=== PATIENT | female | born 1960 | race Caucasian/White ===

== ENCOUNTER 2016-07-30 20:11 | Observation (INO) | payer OTHER ==
[~2016-07-30] VITALS: Ht 167.6 cm; Wt 71.2 kg
--- NOTE | ~2016-07-30 | O ---
[facility] [place] [address] OPERATIVE REPORT Name: SUSANA WHITE Room #: 417-I [facility] Zulema Haskins#: [id number] Admission: 07/30/16 Attend Phys: Jayden Hdz MD Discharge: 07/31/16 Date of : 58 Report #: [id number] THIS REPORT FOR: //name// CC: ILYA physician/PCP Jayden Hdz DATE OF SERVICE: 07/31/2016 PREOPERATIVE DIAGNOSIS: Open right distal radius fracture. POSTOPERATIVE DIAGNOSIS: Open right distal radius fracture. PROCEDURES: 1. Irrigation and debridement of open right distal radius fracture. 2. Percutaneous fixation after closed reduction of right distal radius fracture. SURGEON: Jayden Hdz M.D. ANESTHESIA: General. ESTIMATED BLOOD LOSS: 1 mL. DRAINS: No drains. TOURNIQUET TIME: 30 minutes. DESCRIPTION OF PROCEDURE: The patient brought to the operating room where she was placed under general anesthesia. Once under adequate general anesthesia, her right upper extremity was prepped and draped in a sterile manner. The patient had an open wound just over the ulnar aspect of the distal radius volarly. This was then excised through an elliptical incision extending 2 cm. Blunt dissection was carried down to the bone from this open wound, and exposure of the bone was achieved. The wound was then irrigated copiously with normal saline solution. The wound was then closed with 4-0 nylon suture in a simple stitch manner. We then proceeded with a closed reduction maneuver during which a dorsal skin tear did occur; however, the fracture was well reduced. Once reduced, two 0.062 K-wires were placed across the fracture site. Excellent fixation and alignment was achieved in this manner. This was verified under fluoroscopy. The pins were cut short, and pin balls were placed at the end of the pins. Final x-ray images noted satisfactory alignment. The wound was dressed with Xeroform, 4 x 4s, and a sterile soft compressive dressing with a sugar tong splint was placed. Tourniquet was let down at approximately 30 minutes. Fingers were pink and warm with good capillary refill. There were no [facility] [address] [place] [address] OPERATIVE REPORT Name: SUSANA WHITE Room #: 417-I [facility] Zulema Haskins#: [id number] Admission: 07/30/16 Attend Phys: Jayden Hdz MD Discharge: 07/31/16 Date of : 58 Report #: [id number] complications from the procedure. The patient tolerated the procedure well and went to the recovery room without incident. <ELECTRONICALLY SIGNED> By: Jayden Hdz MD 08/02/16 0935 0121 0405 Jayden Hdz MD /nt
--- NOTE | ~2016-07-30 | EKG ---
[place] [address] 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
--- NOTE | ~2016-07-30 | H ---
[facility] [place] [address] HISTORY AND PHYSICAL Name: CINDYSUSANA Room #: 417-I [facility] Zulema Haskins#: [id number] Admission: 07/30/16 Attend Phys: Jayden Hdz MD Discharge: 07/31/16 Date of : 58 Report #: [id number] THIS REPORT FOR: //name// CC: ILYA physician/PCP Jayden Hdz CHIEF COMPLAINT: Right wrist open distal radius fracture. HISTORY OF PRESENT ILLNESS: This is a 56-year-old patient coming through the Emergency Room for management of a distal radius fracture, which apparently was open. It was apparently paining when she fell off of a ladder injuring her right upper extremity. She was brought to the Emergency Room and evaluated and noted to have a distal radius fracture with a open volar wound. Orthopedics was consulted for management. PAST MEDICAL HISTORY: Is reviewed. MEDICATIONS: The patient takes topiramate, fish oil, vitamins and Caltrate. ALLERGIES: SULFA ANTIBIOTICS. REVIEW OF SYSTEMS: Is as above. PHYSICAL EXAMINATION: VITAL SIGNS: Notes a blood pressure of 113/71, temperature is 36.5, respiratory rate is 20. GENERAL: Awake, alert, in no apparent distress. EXTREMITIES: The patient's right upper extremity notes that she is in a splint. She is neurovascularly intact distally. She has good capillary refill. She has an open volar grade 1 type open wound. DATA: EKG is normal. X-rays are reviewed noting the 100% displaced distal radius fracture dorsally angulated. IMPRESSION: Open right distal radius fracture. PLAN: Would be to proceed with irrigation and debridement with open reduction and internal fixation right distal radius fracture. The risks, benefits, alternatives and complications were discussed at length with the patient. We will proceed in the near future. <ELECTRONICALLY SIGNED> By: Jayden Hdz MD 08/02/16 0935 2304 0354 Jayden Hdz MD /nt
[2016-07-30 20:19] VITALS: BP 113/71
[2016-07-30] MEDS ORDERED: TOPAMAX 25 MG T25 M1 PO (20:23)
[2016-07-30] MEDS ORDERED: APPETITE SUPPRESSANT (20:23)
[2016-07-30] MEDS ORDERED: CALCIUM 600 +1 EAC1 PO (20:24)
[2016-07-30] MEDS ORDERED: VITAMIN D3400 UNIT PO (20:24)
[2016-07-30] MEDS ORDERED: FISH OIL 1,001000 M2 PO (20:24)
[2016-07-30] MEDS ORDERED: POTASSIUM99 M1 (20:25)
[2016-07-30 23:28] VITALS: BP 99/71
[2016-07-30 23:29] LABS: HEMATOCRIT 40.2 % (37.0-47.0); HEMOGLOBIN 13.7 gm/dL (12.0-15.0); MCH 33.1 pg (26.0-34.0); MCHC 34.2 g/dL (28.0-37.0); MCV 96.8 fL (80.0-100.0); RBC 4.16 mil/uL (4.20-5.00); RDW 13.1 % (10.5-14.5); WBC 11.1 thou/uL (4.0-11.0)
[2016-07-30 23:45] LABS: CALCIUM 8.4 mg/dL (8.5-10.1); POTASSIUM 3.4 mmol/L (3.5-5.1)
[2016-07-31 02:10] VITALS: BP 111/66
[2016-07-31 04:00] VITALS: BP 90/49
[2016-07-31 08:11] VITALS: BP 94/53
[2016-07-31] MEDS ORDERED: KEFLEX500 MG PO (09:10)
[2016-07-31] MEDS ORDERED: PERCOCET 7.5-31 EACH PO (09:11)
[2016-07-31 10:10] VITALS: BP 94/53
[2016-07-31 10:46] VITALS: BP 94/53
== END 2016-07-31 10:40 | disposition home or self-care (01) ==
LOC: ER 20:11 → EROBS 22:36 → TBACV 07-31 → 4E 07-31 02:10
PROVIDERS: Emergency Medicine
DX: S52.501B Unspecified fracture of the lower end of right radius, initial encounter for open fracture type I or II (principal); W11.XXXA Fall on and from ladder, initial encounter; Y93.89 Activity, other specified; Y92.89 Other specified places as the place of occurrence of the external cause; Y99.8 Other external cause status
CPT/HCPCS: 50101; 50386; 51275; 53078; 56526; 57091; 62110; 62900; 70005

== ENCOUNTER → 2017-08-04 | Outpatient (CLI) | payer OTHER ==
[~2017-08-04] MED LIST: APPETITE SUPPRESSANT; CALCIUM 600 +1 EAC1 PO; FISH OIL 1,001000 M2 PO; KEFLEX500 MG PO; PERCOCET 7.5-31 EACH PO; POTASSIUM99 M1; TOPAMAX 25 MG T25 M1 PO; VITAMIN D3400 UNIT PO
== END ==
LOC: RAD 13:03
DX: Z12.31 Encounter for screening mammogram for malignant neoplasm of breast (principal); Z85.3 Personal history of malignant neoplasm of breast

== ENCOUNTER → 2018-12-05 | Outpatient (CLI) | payer OTHER | LOC: RAD 10:22 | DX: Z12.31 Encounter for screening mammogram for malignant neoplasm of breast (principal) ==

== ENCOUNTER → 2019-06-06 | Outpatient (CLI) | payer BC, OTHER | LOC: RAD 11:17 | DX: M48.02 Spinal stenosis, cervical region (principal); M41.84 Other forms of scoliosis, thoracic region; M43.12 Spondylolisthesis, cervical region; M50.122 Cervical disc disorder at C5-C6 level with radiculopathy; M12.88 Other specific arthropathies, not elsewhere classified, other specified site ==

== ENCOUNTER 2019-08-16 13:35 | Inpatient (IN) | payer BC, OTHER ==
[~2019-08-16] VITALS: Ht 167.6 cm; Wt 73.4 kg
--- NOTE | ~2019-08-16 | HC ---
[facility] [place] [address] CONSULTATION Name: SUSANA WHITE Room #: 213-P [facility] IN M.R.#: [id number] Admission: 08/16/19 Attend Phys: Sinan Felix MD Discharge: 08/17/19 Date of : 58 Report #: [id number] THIS REPORT FOR: cc: Shu Callejas MD, Nora P. MD McKittrick, Richard James MD ~ CC: [facility] Callejas MD REASON FOR CONSULTATION: History of breast cancer, now with left vocal cord paresis and abnormalities on scans. 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 At that time, she describes a right-sided breast ____ less than 2 cm grade 3, ER positive. She was age 46. She reports genetic testing for BRCA1 and 2. This was up in [place] at [place]. She received dose-dense Adriamycin, Cytoxan x 4 cycles and Taxol q. 2 weeks for 4 cycles. She then completed 5 years of Femara in about 2012. Note that she also had post-lumpectomy radiation therapy. Recently, the patient has since about May 2019 some voice changes, also about the same time some base of the neck pain, also some left hip/left leg pain. Outpatient had shown a CAT scan of the neck that showed a lesion in the bones at the base of the neck. She has also had a CT head here, which showed a parietal lesion. She also had a plain film showing some worrisome changes for metastatic disease in her left femur. She also had a pleural effusion, which has had a thoracentesis, I believe, 2 liters. PAST MEDICAL HISTORY: Notable for the breast cancer as mentioned above. Also, history of bilateral ACL troubles, also right shoulder surgery. Also, right wrist surgery. FAMILY HISTORY: Father had heart disease, mother at age 94 with macular degeneration. One brother with heart disease. Two sisters, one has Crohn's, one had glaucoma. Two sons, one is age 28, one age 29, I think both attendant [facility], one is an environmental programs manager in [place], the other, I believe, is in [place]. 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 Nonsmoker, rare alcohol, maybe once per week. No street drugs. The patient's last colonoscopy was about 5 years ago[address] [address] CONSULTATION Name: SUSANA WHITE Room #: 213-P [facility] IN M.R.#: [id number] Admission: 08/16/19 Attend Phys: Sinan Felix MD Discharge: 08/17/19 Date of : 58 Report #: [id number] MEDICATIONS: At this time in the hospital currently include morphine sulfate p.r.n., hydrocodone 1 tab q.4 hours p.r.n., Tylenol p.r.n., zolpidem 5 mg at bedtime p.r.n., MiraLax 17 grams p.r.n., Zofran p.r.n. PHYSICAL EXAMINATION: GENERAL: The patient appears her stated age. VITAL SIGNS: Height is 5 feet 6 inches, which is 167.6 cm. Weight is 161.9 pounds or 73.4 kilograms. Blood pressure is 128/73 with respirations of 18, pulse 106, afebrile at 97.8, O2 sat on room air is 93%. MOOD: The patient is alert, pleasant, conversant. NEUROLOGIC: Speech pattern and thought pattern appear to be normal. Moving all extremities. Voice is slightly raspy consistent with a left vocal cord paresis noted by Dr. Jameson Martinez. LYMPHATICS: No enlarged lymph nodes in the supraclavicular, cervical, axillary or inguinal region. ABDOMEN: Slightly obese. No organomegaly. Nontender. EXTREMITIES: Without clubbing, cyanosis or edema. On gross exam, no weakness or dysesthesias noted. LABORATORY DATA: Done here in the hospital currently includes sodium slightly low at 134, BUN 22, creatinine 0.9, AST 31, ALT 26, alkaline phosphatase 107. Coags were normal. White blood count 7, hemoglobin 13.7, MCV 96.0, platelets 289. Differential mostly normal, though a slight increase in neutrophils. RADIOLOGIC STUDIES: Here in the hospital currently include, 2-view hip showing a solitary left femoral, proximal diaphyseal small lytic bone lesion, nonspecific, but worrisome, otherwise negative study. Chest x-ray shows moderate to large left pleural effusion with underlying left lung pneumonia/atelectasis or mass not excluded. Recommended thoracentesis and followup. CT head shows no evidence of acute intracranial hemorrhage. Mixed lucent and sclerotic lesion within the high paramedial left parietal bone at the vertex measuring 3.2 x 3.7 cm. Note that we also have copies of CT chest from diagnostic imaging centers dated 08/15/2019. This describes the impression: Large left pleural effusion with extensive atelectasis. Leftward shift in mediastinum. 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 Numerous scattered bilateral pulmonary nodules suspicious for metastatic disease. Multiple lytic lesions scattered throughout the visualized osseous structures highly suspicious for metastatic disease. Dominant lesion within T12 vertebral body resulting disruption of the posterior vertebral body cortex with suggestion of minimal epidural extension of the tumor. Small ill-defined hepatic lesions, which is indeterminate. Prominent left supraclavicular lymph node, which is indeterminate. Small indeterminate density left renal lesion. Small pericardial effusion. CT neck from same date from diagnostic imaging shows a 2.2 x 3.2 cm expansile destructive lesion in the left skull base involving the left occipital condyle extending to the left jugular foramen. We also have [address] [address] CONSULTATION Name: SUSANA WHITE Room #: 213-P [facility] IN M.R.#: [id number] Admission: 08/16/19 Attend Phys: Sinan Felix MD Discharge: 08/17/19 Date of : 58 Report #: [id number] Jameson Martinez mentioning partially paralyzed left vocal cord with no palpable abnormality of the neck. ASSESSMENT AND PLAN: 1. History of hormone positive breast cancer from 2006, now with abnormal CAT scan with pleural effusion. Await cytology. The patient will likely go home. We will order PET scan and MRI head. We may need to consider additional test. We will await cytology and we may need to consider biopsy of lesion for additional testing. The patient is aware that this may represent recurrent breast cancer or another malignancy or infection. 2. Trouble swallowing liquids. We will have speech therapy see the patient. 3. Bony disease. We will likely consider bisphosphonate or RANK-ligand therapy. 4. Pain control. Hydrocodone and Tylenol and nonsteroidals as needed. The patient will be called regarding PET scan and MRI and will be arranged for followup. By: 0804 0836 Gunner Elliott MD /nt
[2019-08-16 13:40] VITALS: BP 122/79
[2019-08-16 14:16] LABS: ABSOLUTE NEUTROPHILS 5.5 thou/uL (1.4-8.2); BASOPHILS 0.4 % (0.0-2.0); EOSINOPHILS 1.5 % (0.0-3.0); HEMATOCRIT 40.8 % (37.0-47.0); HEMOGLOBIN 13.7 gm/dL (12.0-15.0); LYMPHOCYTES 11.3 % (24.0-44.0); MCH 32.3 pg (26.0-34.0); MCHC 33.6 g/dL (28.0-37.0); MONOCYTES 8.2 % (1.0-8.0); PLATELET COUNT 289 thou/uL (150-400); POLYS 78.6 % (36.0-66.0); RBC 4.25 mil/uL (4.20-5.00); RDW 12.8 % (10.5-14.5)
[2019-08-16] MEDS ORDERED: CHILDREN'S ZYRT10 M1 PO (14:22)
[2019-08-16] MEDS ORDERED: COQ-10100 MG PO (14:22)
[2019-08-16] MEDS ORDERED: CALCIUM 600 +1 EAC1 PO (14:23)
[2019-08-16] MEDS ORDERED: VITAMIN D3250 MC2 PO (14:23)
[2019-08-16] MEDS ORDERED: IBUPROFEN200 M1 PO (14:24)
[2019-08-16] MEDS ORDERED: [UNRECOGNIZED DRUG - OTHER] PO (14:24)
[2019-08-16] MEDS ORDERED: MULTIPLE VITAM1 EAC2 PO (14:25)
[2019-08-16 14:29] LABS: ANION GAP 8 mmol/L (7-16); BUN 22 mg/dL (7-18); CALCIUM 9.6 mg/dL (8.5-10.1); CHLORIDE 99 mmol/L (98-107); CO2 27 mmol/L (21-32); CREATININE 0.9 mg/dL (0.6-1.0); GLUCOSE 99 mg/dL (74-106); POTASSIUM 3.8 mmol/L (3.5-5.1); SODIUM 134 mmol/L (136-145)
[2019-08-16 14:38] LABS: ALBUMIN 3.5 g/dL (3.4-5.0); SGOT 31 U/L (15-37); SGPT 26 U/L (30-65); TOTAL BILIRUBIN 0.3 mg/dL (<0.1-1.0); TOTAL PROTEIN 7.7 g/dL (6.4-8.2); TROPONIN-I <0.06 ng/mL (<0.06)
[2019-08-16 14:48] LABS: APTT 27.3 Seconds (24.5-32.8)
[2019-08-16 17:04] LABS: CLARITY CLOUDY; COLOR DARK YELLOW; SOURCE LEFT CHEST; TOTAL VOLUME 35 mL
[2019-08-16 17:10] VITALS: BP 119/54
[2019-08-16 17:10] LABS: SOURCE LEFT CHEST
[2019-08-16 17:27] LABS: BF NUCLEATED CELLS 1831; BF RBC 6002
[2019-08-16 17:38] VITALS: BP 121/69
[2019-08-16 18:05] VITALS: BP 125/75
[2019-08-16 18:05] LABS: BF COMMENTS 0; BF MACROPHAGE 3; BF NEUTROPHILS 0
--- NOTE | 2019-08-16 18:05 | NUR ---
PT RECEIVED FROM THE ER TO ROOM 213 ALERT AND IN ACUTE DISTRESS. SETTLED INTO BED AND ORIENTED TO UNIT. DINNER TRAY SERVED AND PT EATING.
[2019-08-16 19:45] VITALS: BP 111/71
[2019-08-16 23:56] VITALS: BP 114/56
[2019-08-17 03:39] VITALS: BP 128/73
--- NOTE | 2019-08-17 03:54 | NUR ---
1900, PT NEW ADMIT. ALERT AND ORIENTED. VSS WITH LITTLE ELEVATED HR 99-110. DENIES CHEST PAIN OR CHEST PALPITATIONS. LUNGS CLEAR, NO EDEMA, NO NAUSEA OR VOMITING REPORTED. PT REPORTS HEADACHE, TYLENOL PRN. NO FURTHER C/O AT THIS TIME. WILL CONTINUE TO FOLLOW POC.
[2019-08-17 08:15] VITALS: BP 115/72
--- NOTE | 2019-08-17 08:29 | EKG ---
[facility] [place] [address] ELECTROCARDIOGRAM REPORT Name: SUSANA WHITE Room #: 213-P ADM IN M.R.#: [id number] Admission: 08/16/19 Attend Phys: Sinan Felix MD Discharge: Date of : 58 Report #: [id number] THIS REPORT FOR: cc: Shu Callejas MD, Nora P. 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 : 1960 Requested By: Yash Smith Order Number: [id number] MD: Jf Beebe Measurements Intervals [place] Rate: 104 P: 44 [place]: 135 QRS: 35 QRSD: 90 T: -9 QT: 326 QTc: 429 Interpretive Statements Sinus tachycardia Borderline T abnormalities, inferior leads Compared to ECG 07/30/2016 22:23:21 T-wave abnormality now present Sinus bradycardia no longer present Electronically Signed On 08-17-2019 8:27:35 CDT by Jf Beebe [email or web address] <ELECTRONICALLY SIGNED> By: Jf Beebe MD, [facility] 08/17/19 0827 1404 1404 Jf Beebe MD, [facility] /EPI
[2019-08-17 13:41] VITALS: BP 115/72
--- NOTE | 2019-08-17 14:35 | NUR ---
ASSUMMED PT CARE AT APPROXIMATELY 0700. PT A&O X4. ASSESSMENT CHARTED. FALL PRECAUTIONS IN PLACE. PT DENIES HAVING CHEST PAIN. PT DENIES HAVING SOB. PT STATED THE BACK OF HER HEAD HURT. PT RECEIVED ANALGESICS. PT STATED SHE HAD PAIN AFTER ANALGESICS. PT DENIED WANTING ADDITIONAL ANAGLESICS. PT DISCHARGING HOME C SELF CARE. PT AMBULATES STEADY/INDEPENDENTLY WITH WALKER. PT RECEIVED DISCHARGE EDUCATION. PT STATED UNDERSTANDING AND DENIED HAVING FURTHER QUESTIONS. IV DC. TELE DC. PT RECEIVING HOSPITAL TRANSPORT OFF UNIT. VITAL SIGNS STABLE. PT COMFORTABLE. PT DENIES HAVING FURTHER CONCERNS.
[2019-08-17 18:08] LABS: BODY FLUID AMYLASE 55 U/L (()); BODY FLUID GLUCOSE 89 mg/dL (()); BODY FLUID LDH 230 IU/L (()); BODY FLUID PROTEIN 4.5 g/dL (())
== END 2019-08-17 15:00 | disposition home or self-care (01) | DRG 187 ==
LOC: ER 13:35 → EROBS 16:17 → 2N 16:17 → ENTRNSPT 08-17 14:39 → 2N 08-17 15:00
PROVIDERS: Emergency Medicine; Family Medicine; ADMIT Hospitalist
PROC: 0W9B3ZZ Drainage of Left Pleural Cavity, Percutaneous Approach (ICD-10-PCS; principal; 2019-08-16)
DX: J90 Pleural effusion, not elsewhere classified (principal); E87.1 Hypo-osmolality and hyponatremia; M89.9 Disorder of bone, unspecified; Z85.3 Personal history of malignant neoplasm of breast; Z87.81 Personal history of (healed) traumatic fracture; Z88.2 Allergy status to sulfonamides; Z82.49 Family history of ischemic heart disease and other diseases of the circulatory system
CPT/HCPCS: 10081; 10797

== ENCOUNTER 2019-08-30 16:32 | Inpatient (IN) | payer BC, OTHER ==
[~2019-08-30] VITALS: Ht 167.6 cm; Wt 74.4 kg
--- NOTE | ~2019-08-30 | O ---
[facility] [place] [address] OPERATIVE REPORT Name: SUSANA WHITE Room #: 437-P [facility] M.R.#: [id number] Admission: 08/30/19 Attend Phys: Karri Uriarte MD Discharge: Date of : 58 Report #: [id number] THIS REPORT FOR: cc: Shu Callejas MD, Nora P. MD Clymer, David J. MD ~ CC: Karri Callejas DATE OF SERVICE: 08/31/2019 PREOPERATIVE DIAGNOSIS: Pathologic fracture, left femoral neck. POSTOPERATIVE DIAGNOSIS: Pathologic fracture, left femoral neck. PROCEDURE: Left proximal femoral hemiarthroplasty. SURGEON: Marques Byrnes MD INDICATIONS: This 59-year-old female has widely metastatic breast cancer. She developed a pathologic fracture of the left femoral neck. We have discussed treatment options and elected to proceed with cemented hemiarthroplasty. DESCRIPTION OF PROCEDURE: The patient was taken to the operating room where she was placed under general anesthesia. Prophylactic intravenous antibiotics were administered. She was turned to the right lateral decubitus position. The left hip and thigh were meticulously prepped and draped. A slightly curving skin incision was made centered over the greater trochanter. This was carried through subcutaneous tissues and fascia exposing the posterior aspect of the hip joint. The short external rotators were taken down and the capsule was preserved. The fracture was found to be displaced and unstable. The femoral head was removed and measured at 46 mm in diameter. The femoral neck was trimmed down to an appropriate level. The canal was opened with reamers and hand broaches. The Mccollum and Nephew size 12 cemented stem seemed to fit nicely. A trial reduction was performed and the hip seemed stable and well aligned when using a +4 mm neck length and a 46 mm unipolar head size. The trial components were removed. The intramedullary canal was thoroughly irrigated and dried. A cement restrictor was placed distally in the canal. The acetabulum was thoroughly inspected and any loose debris was removed. Methyl methacrylate cement was then mixed and injected into canal. The Mccollum and Nephew size 12 cemented stem was then inserted, placing this in about 15 degrees of anteversion. Excess cement was removed around its margin. The unipolar 46 mm size head with a +4 mm neck length was then inserted. This was gently impacted on the Abreu taper and seated nicely. The hip was reduced and held securely as the cement hardened. Alignment, range of motion and stability were [facility] [address] [place] [address] OPERATIVE REPORT Name: WHITESUSANA Room #: 437-P [facility] IN M.R.#: [id number] Admission: 08/30/19 Attend Phys: Karri Uriarte MD Discharge: Date of : 58 Report #: [id number] assessed and felt to be satisfactory. The capsule was repaired and the short external rotators were repaired back to bone using #1 Tevdek sutures, passed through the greater trochanter. A single Hemovac was left in the wound exiting through a separate stab incision. The fascia was then closed with multiple #1 Vicryl sutures. The subcutaneous tissues were closed with 0 Monocryl. The skin was closed with skin krista. A sterile dressing was applied. The patient was awakened and returned to recovery room in good condition. By: 1510 1535 Marques Byrnes MD /nt
[~2019-08-30 16:32] MED LIST changes: +CHILDREN'S ZYRT10 M1 PO; +COQ-10100 MG PO; +IBUPROFEN200 M1 PO; +MULTIPLE VITAM1 EAC2 PO; +VITAMIN D3250 MC2 PO; +[UNRECOGNIZED DRUG - OTHER] PO
[2019-08-30 16:48] VITALS: BP 142/72
[2019-08-30] MEDS ORDERED: CYCLOBENZAPRINE10 MG PO (16:54)
[2019-08-30] MEDS ORDERED: DEXAMETHASONE1 MG PO (16:55)
[2019-08-30] MEDS ORDERED: NAMENDA 10 MG T10 MG PO (16:56)
[2019-08-30 17:42] LABS: ABSOLUTE NEUTROPHILS 7.8 thou/uL (1.4-8.2); BASOPHILS 0.3 % (0.0-2.0); EOSINOPHILS 0.7 % (0.0-3.0); HEMATOCRIT 38.3 % (37.0-47.0); HEMOGLOBIN 13.2 gm/dL (12.0-15.0); MCH 32.9 pg (26.0-34.0); MCHC 34.6 g/dL (28.0-37.0); MCV 95.2 fL (80.0-100.0); MONOCYTES 6.3 % (1.0-8.0); PLATELET COUNT 323 thou/uL (150-400); POLYS 85.7 % (36.0-66.0); RBC 4.02 mil/uL (4.20-5.00); RDW 12.9 % (10.5-14.5); WBC 9.1 thou/uL (4.0-11.0)
[2019-08-30 17:49] LABS: CALCIUM 9.3 mg/dL (8.5-10.1); CREATININE 0.8 mg/dL (0.6-1.0); POTASSIUM 4.5 mmol/L (3.5-5.1)
[2019-08-30 18:39] VITALS: BP 142/72
[2019-08-30 18:51] VITALS: BP 145/82
[2019-08-30 19:52] VITALS: BP 144/83
[2019-08-31 03:50] VITALS: BP 131/82
--- NOTE | 2019-08-31 04:02 | NUR ---
PT WAS ADMITTED TO THE UNIT FROM THE ER IN A STABLE CONDITION.ADMISSION HX,EDUCATION AND ASSESSMENT COMPLETED BY ADMISSION NURSE.CONSAENTS SIGNED ,IN THE CHART.HOOKS CATH INSERTED PER ORDER.PT C/O PAIN,MANAGED WITH ICE AND MED,EFFECTIVE.PT NPO FOR SURGERY LATER IN THE DAY.FALL PRECAUTIONS IN PLACE,CALL LIGHT WITHIN REACH.
[2019-08-31 07:43] VITALS: BP 128/87
[2019-08-31 08:09] LABS: CALCIUM 8.8 mg/dL (8.5-10.1); CREATININE 0.8 mg/dL (0.6-1.0)
[2019-08-31 08:13] LABS: POTASSIUM 3.4 mmol/L (3.5-5.1)
--- NOTE | 2019-08-31 11:43 | HC ---
[facility] [place] [address] CONSULTATION Name: SUSANA WHITE Room #: 437-P [facility] IN M.R.#: [id number] Admission: 08/30/19 Attend Phys: Karri Uriarte MD Discharge: Date of : 58 Report #: [id number] THIS REPORT FOR: cc: Shu Callejas MD, Nora P. MD Clymer, David J. MD ~ CC: Karri Callejas DATE OF SERVICE: 08/30/2019 CHIEF COMPLAINT: Metastatic breast cancer with pathologic fracture, left femoral neck. HISTORY OF PRESENT ILLNESS: This 59-year-old female has widely metastatic breast cancer and has progressive symptoms in multiple areas. Recently, she developed hoarseness consistent with a partial vocal cord paralysis. In the workup for that problem, she was found to have a large pulmonary effusion, which required aspiration and drainage. She has also noted progressive left hip pain, which has become much more severe recently. Recent outpatient PET scan confirmed evidence of a pathologic fracture involving the left femoral neck. This is confirmed with plain x-rays in my office today. We elected to go ahead with hospital admission for more complete evaluation and probable surgical management with cemented hemiarthroplasty. Her previous medical history is notable for her metastatic breast disease and for the problems noted above. I note that she was recently admitted to [facility] by the hospitalist group on 08/16/2019. Her current medications include hydrocodone, Tylenol, MiraLax, and Zofran p.r.n. PHYSICAL EXAMINATION: GENERAL: She is alert and oriented, but seems somewhat frail. She is somewhat hoarse consistent with vocal cord paralysis. She is unable to stand or bear weight due to left hip pain. LUNGS: Today seem clear to auscultation. CARDIOVASCULAR: Reveals a regular rate and rhythm without murmurs. ABDOMEN: Soft and nontender. EXTREMITIES: The upper extremities are normal and demonstrate good range of motion without much pain. The pelvis appears to be stable and well aligned. The right hip demonstrates good range of motion without significant discomfort. The left hip is also in good alignment, but demonstrates significant discomfort with any attempted flexion or rotation. Findings are certainly consistent with a metastatic lesion and pathologic fracture at the left femoral neck. The lower leg, foot, and ankle appear to be normal. IMPRESSION: Metastatic breast cancer with pathologic fracture, left hip. I [address] [address] CONSULTATION Name: SUSANA WHITE Room #: 437-P [facility] IN M.R.#: [id number] Admission: 08/30/19 Attend Phys: Karri Uriarte MD Discharge: Date of : 58 Report #: [id number] have discussed this at some length with the patient and patient and her both agree they would like to press ahead with surgical repair. We have discussed percutaneous screw fixation or TFN nail, but I doubt this would result in clear pain relief or reliable fracture healing. She is anxious to be able to resume weightbearing and activity, so that she can press ahead with her plans for outpatient radiation therapy. Consequently, I think cemented hemiarthroplasty may be the best and most practical option for this patient. We will plan to proceed with hospital admission for general evaluation and clearance. Pending this, we might be able to proceed with surgical repair tomorrow on 08/31/2019. <ELECTRONICALLY SIGNED> By: Marques Byrnes MD 08/31/19 1143 1629 1851 Marques Byrnes MD /nt
--- NOTE | 2019-08-31 12:18 | NUR ---
ASSESSMENT: CM REVIEWED CHART AND SPOKE WITH PATIENT VIA TELEPHONE. PT HAS HX OF METASTATIC BREAST CA WITH PATHOLOGIC FX OF LEFT FEMORAL NECK AND SURGERY WAS POSTPONED UNTIL TODAY DUE TO CORONAVIRUS PANDEMIC. PT FOLLOWS DR. WORTHY AT [facility]. PT REPORTS THAT SHE LIVES AT HOME WITH HER SPOUSE. PT REPORTS THAT THEY LIVE IN A RANCH STYLE DUPLEX WITH TWO STEPS AND HANDRAILS TO ENTER. PT REPORTS NO STEPS ONCE INSIDE. PT REPORTS SHE NORMALLY AMBULATES INDEPENDENTLY BUT SINCE THIS FRACTURE SHE HAD BEEN USING A WALKER. PT REPORTS THEY HAVE A SHOWER BENCH AND SHE IS INDEPENDENT WITH ADLS. PT DENIES HAVING HH IN THE PAST OR BEING TO A SNF. CM DISCUSSED ROLE. PT IS TO HAVE SURERY AND THEN WILL WORK WITH THERAPIES. PT IS HOPING TO BE INDEPENDENT POSSIBLE AT DISCHARGE. CM WILL FOLLOW UP WITH PATIENT AFTER SHE IS ABLE TO WORK WITH THERAPY TO BETTER ASSESS NEEDS AT DISCHARGE. PT IS AGREEABLE WITH HH REFERRAL TO [facility] IF SHE WERE TO NEED IT AT DISCHARGE. CM FAXING REFERRAL. CM WILL CONTINUE TO FOLLOW TO ASSIST NEEDED. IF PT IS ABLE TO DISCHARGE OVER THE WEEKEND AND NEEDS HH CONTACT [facility]: [phone] and fax d/c ORDERS AND SUMMARY TO :[phone].
[2019-08-31 17:15] VITALS: BP 115/68
[2019-08-31 18:03] LABS: HEMATOCRIT 38.9 % (37.0-47.0); HEMOGLOBIN 12.9 gm/dL (12.0-15.0); MCH 32.3 pg (26.0-34.0); MCHC 33.1 g/dL (28.0-37.0); MCV 97.5 fL (80.0-100.0); RBC 3.99 mil/uL (4.20-5.00); RDW 13.1 % (10.5-14.5)
[2019-08-31 19:46] VITALS: BP 118/72
--- NOTE | 2019-09-01 01:49 | NUR ---
ASSESSMENT COMPLETEED. PT IS ALERT AND ORIENTED X4. PT LEFT HIP WITH POST OP DRSG INTACT. HEMOVAC IN PLACE. AFEBRILE. C/O HEADACHE. ICEPAK BEHIND NECK HELPS WITH THE PAIN.ICE DRISS PLACED TO LEFT HIP. SHE DENIES PAIN AT REST.AFEBRILE. VOICE HOARSE PER BASELINE, DENIES ANY DIFFICULTY BREATHING OR COUGH.SHE IS ON 02/2L/NC.CALLS APPROPRIATELY.WILL CONTINUE WITH POC TILL EOS.
[2019-09-01 03:57] VITALS: BP 124/75
[2019-09-01 05:43] LABS: HEMATOCRIT 34.4 % (37.0-47.0); HEMOGLOBIN 11.6 gm/dL (12.0-15.0); MCH 32.7 pg (26.0-34.0); MCHC 33.8 g/dL (28.0-37.0); MCV 96.5 fL (80.0-100.0); RBC 3.57 mil/uL (4.20-5.00); RDW 12.8 % (10.5-14.5); WBC 8.2 thou/uL (4.0-11.0)
--- NOTE | 2019-09-01 07:25 | HC ---
[facility] [place] [address] CONSULTATION Name: WHITESUSANA Room #: 437-P [facility] M.R.#: [id number] Admission: 08/30/19 Attend Phys: Karri Uriarte MD Discharge: Date of : 58 Report #: [id number] THIS REPORT FOR: cc: Shu Callejas MD, Nora P. MD McKittrick, Richard James MD ~ CC: Karri Callejas MD DATE OF SERVICE: 08/31/2019 REASON FOR CONSULTATION: Metastatic breast cancer. HISTORY OF PRESENT ILLNESS: The patient is a very pleasant 59-year-old female who I recently met during the hospitalization on August 15 and . She has a history notable for right-sided reportedly stage 2, grade 3, ER positive breast cancer from 2006. At that time, she had lumpectomy followed by chemotherapy with Adriamycin and Cytoxan given q. 2 weeks for 4 cycles and then Taxol every 2 weeks for 4 cycles. She did have post-lumpectomy, radiation therapy in [place], and then completed 5 years of Femara in 2012. In about 05/2019, she developed hoarseness. She had seen Dr. Jameson Martinez who noted that she had a left vocal cord paresis. She had a CT neck and chest, which showed a large pleural effusion. She had a thoracentesis about 08/16/2019. Cytology came back with adenocarcinoma that was ER positive and subsequently has been found to be HER2 1+ or not expressed. Unfortunately, a PET scan done on 08/28/2019 confirmed the previously worrisome changes of metastatic disease in the bones and the liver. She also had an MRI that showed at least 5 and possibly 7 cerebellar and cerebral metastases. She has seen Dr. Naida Grady yesterday who had suggested whole brain radiation therapy next week. I will begin the patient on dexamethasone 2 mg daily. She had also seen speech therapy during the last admit, who thought she had some very mild dysphagia and suggested left head turning when she was swallowing. Since last seen the patient, she today does not really have headache, does have high neck pain, which I think may be related to the met in about C2. She does not have any new swallowing troubles. Her breathing is good. She has no sinus trouble. No fevers, no chills, no nausea, no vomiting. No spitting up of blood, no blood in urine or stool. No diarrhea, no constipation. No dysesthesias. No arm or leg swelling. She does have the hip pain. PAST MEDICAL HISTORY: Also notable for bilateral ACL troubles, also right [facility] [address] [place] [address] CONSULTATION Name: SUSANA WHITE Room #: 437-P [facility] M.R.#: [id number] Admission: 08/30/19 Attend Phys: Karri Uriarte MD Discharge: Date of : 58 Report #: [id number] shoulder surgery in the past. Also, right wrist surgery. FAMILY HISTORY: Father had heart disease, mother at age 94 macular degeneration. One brother with heart disease. Two sisters, one has Crohn's disease, one has glaucoma. Two sons, one is age 28, the other is age 29, both attendant [employer], one is an environmental protection specialist in [place] and the other I believe is in [place]. 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 Nonsmoker, rare alcohol, maybe once per week. No street drugs. Last colonoscopy, maybe 5 years ago. MEDICATIONS: At this time in the hospital include Lovenox 40 mg at bedtime, dexamethasone 2 mg daily, CoQ10 100 mg daily, multivitamin with iron 1 daily, vitamin D 1000 units daily, calcium carbonate 1 tab daily, memantine 10 mg daily, loratadine 10 mg daily, fentanyl 50 mcg p.r.n., hydrocodone p.r.n., Tylenol p.r.n., MiraLax p.r.n., Zofran p.r.n. PHYSICAL EXAMINATION: VITAL SIGNS: Height is 5 feet 6 inches, 167.6 cm. Weight is 160 pounds or 72.6 kilograms. Blood pressure is 131/82, O2 sat 93%, respirations 18, pulse 103, temperature 98. MOOD: She is alert, pleasant, conversant. NEUROLOGIC: Speech and thought pattern are normal. She is moving extremities purposefully and with good intent. Face is symmetric. Voice is slightly softer as before, slightly raspy unchanged. HEENT: Oropharynx clear. LUNGS: Mostly clear, left base may be a little bit dull. LYMPHATICS: No enlarged lymph nodes in the supraclavicular, cervical, axillary or inguinal region. ABDOMEN: Slightly obese. No masses, nontender. EXTREMITIES: Without clubbing or cyanosis. Left hip, not examined. A lot organ strength because of known hip fracture. LABORATORY DATA: Done this admit include a CBC with a white count of 9.1, hemoglobin 13.2, platelets of 323 with fairly normal differential. Basic chemistries were normal with a BUN of 23, creatinine 0.8, calcium of 9.3. ASSESSMENT AND PLAN: 1. Metastatic breast cancer. The patient will continue exemestane once discharged. We will also consider adding bisphosphonate. 2. Bony metastases. Appreciate Dr. Byrnes's plans for left hip semi-hip replacement. We will defer final procedure to him. We will most likely plan on radiation therapy after healing. 3. Cerebellar and cerebral metastases. No plans for whole brain radiation therapy in near future. Continue dexamethasone 2 mg. [facility] [address] [place] [address] CONSULTATION Name: SUSANA WHITE Room #: 437-P [facility] ..#: [id number] Admission: 08/30/19 Attend Phys: Karri Uriarte MD Discharge: Date of : 58 Report #: [id number] 4. Mild dysphagia from vocal cord paresis, left head turning when swallowing. 5. Pain p.r.n. as needed. We will follow with you. <ELECTRONICALLY SIGNED> By: Gunner Elliott MD 09/01/19 0725 [id number] 0900 Gunner Elliott MD /nt
[2019-09-01 07:30] VITALS: BP 112/67
[2019-09-01 15:35] VITALS: BP 105/66
--- NOTE | 2019-09-01 18:17 | NUR ---
ASSUMED PATIENT CARE AT 0700. AXO X4. ON 2L/O2/NC. LEFT HIP POST OP DRESSING INTACT. HEMOVAC REMOVED BY THE PHYSICIAN AND SAID CAN WEAN OXYGEN. OXYGEN CHANGES TO 1L/NC AROUND 1500, PATIENT TOLERATING WELL WITH O2 SAT OF 94%. ICE PACK PLACED TO LEFT HIP AND BEHIND THE NECK. PAIN TOLERATING WELL WITH TYLENOL. PT AND OT WORKED WITH PATIENT AN RECOMMENDED STAY ANOTHER NIGHT. WEIGHT BEARING TOLERATED.
[2019-09-01 19:15] VITALS: BP 111/65
--- NOTE | 2019-09-02 04:41 | NUR ---
PT WALKS WELL TO THE BATHROOM WITH ROLLER WALKER.PAIN MANAGED BY TYLENOL. DRSG TO L HIP IS DRY AND INTACT.USING ICE DRISS FOR HIP AND ALSO HEADACHE.SHE IS COMFORTABLE ON /, SATTING OKAY.RESTING QUIETLY. ANTICIPATING DISCHARGE TODAY.
[2019-09-02 07:04] LABS: HEMATOCRIT 36.1 % (37.0-47.0); HEMOGLOBIN 12.2 gm/dL (12.0-15.0); MCH 32.3 pg (26.0-34.0); MCHC 33.7 g/dL (28.0-37.0); MCV 95.8 fL (80.0-100.0); RBC 3.77 mil/uL (4.20-5.00); RDW 12.8 % (10.5-14.5); WBC 8.2 thou/uL (4.0-11.0)
[2019-09-02 08:21] VITALS: BP 128/71
[2019-09-02] MEDS ORDERED: MIRALAX17 GM PO (10:59)
[2019-09-02] MEDS ORDERED: ACETAMINOPHEN325 M1 PO (10:59)
[2019-09-02] MEDS ORDERED: ULTRAM50 MG PO (10:59)
[2019-09-02 12:03] VITALS: BP 128/71
--- NOTE | 2019-09-02 13:31 | NUR ---
ASSESSED PATIENT CARE AT 0700.AXO X4. WEIGHT BEARING TOLERATED AND WALKS TO THE BATHROOM. DRESSING DRY AND INTACT. PATIENT WORKED WITH PT WITHOUT O2 WITH AN O2 SAT OF 91%. SITTING IN CHAIR OKAY. WILL CALL FOR HELP.
--- NOTE | 2019-09-04 13:47 | NUR ---
PT DISCHARGED TO HOME WITH [facility] ON 09/01 FAXED DC ORDERS/SUMMARY SPOKE WITH LAUREL IN INTAKE SHE RECEIVED ORDERS AND WILL NOTIFY PT TIME OF VISITS.
== END 2019-09-02 16:04 | disposition home health service (06) | DRG 470 ==
LOC: ER 16:32 → EROBS 18:19 → 4S 18:19
PROVIDERS: Emergency Medicine; Nurse Practitioner Family; Orthopaedic Surgery; ADMIT Hospitalist
PROC: 0SRS0J9 Replacement of Left Hip Joint, Femoral Surface with Synthetic Substitute, Cemented, Open Approach (ICD-10-PCS; principal; 2019-08-31)
DX: M84.459A Pathological fracture, hip, unspecified, initial encounter for fracture (principal); C79.51 Secondary malignant neoplasm of bone; C79.31 Secondary malignant neoplasm of brain; J91.0 Malignant pleural effusion; C50.919 Malignant neoplasm of unspecified site of unspecified female breast; R13.10 Dysphagia, unspecified; E78.5 Hyperlipidemia, unspecified; J38.01 Paralysis of vocal cords and larynx, unilateral; Z20.828 Contact with and (suspected) exposure to other viral communicable diseases; Z88.2 Allergy status to sulfonamides; Z79.899 Other long term (current) drug therapy
CPT/HCPCS: 10195; 50010; 50101; 50382; 50414; 51057; 51130; 51225; 51412; 53369; 56521; 56525; 56527; 57103; 57104; 62110; 62900; 70005

== ENCOUNTER → 2019-09-05 | Outpatient (CLI) | payer BC, OTHER ==
[~2019-09-05] MED LIST changes: +ACETAMINOPHEN325 M1 PO; +CYCLOBENZAPRINE10 MG PO; +DEXAMETHASONE1 MG PO; +MIRALAX17 GM PO; +NAMENDA 10 MG T10 MG PO; +ULTRAM50 MG PO
== END ==
LOC: SPEECH 13:21 → RAD 13:21
DX: R13.12 Dysphagia, oropharyngeal phase (principal)